=== PATIENT | female | born 1965 | race Caucasian/White ===

== ENCOUNTER 2018-01-14 08:08 | Inpatient (IN) | payer OTHER ==
[2018-01-01 11:11] VITALS: BMI 35.0
--- NOTE | 2018-01-01 11:41 | PAT Medication Instructions ---
Service Date Jan 01, 2018. Current Home Medication List Bupropion (Wellbutrin Sr), 150 MG PO BID Hydrocodone/Acetaminophen 10MG/325MG ([place] 10MG/325MG), 1 TAB PO Q4H PRN for Pain Lorazepam (Ativan), 1 MG PO Q6H PRN for RN Nitrofurantoin Macrocrystals (Macrodantin), 50 MG PO HS Propranolol (Inderal), 80 MG PO HS Tizanidine (Zanaflex), 4 MG PO Q8H PRN for RN Topiramate (Topamax), 100 MG PO BID Medication Instructions For Your Scheduled Surgery - Hold the following medications the morning of surgery: Tizanidine (Zanaflex), 4 MG PO Q8H PRN for RN - Take the following medications the morning of surgery with a sip of water: Bupropion (Wellbutrin Sr), 150 MG PO BID Hydrocodone/Acetaminophen 10MG/325MG ([place] 10MG/325MG), 1 TAB PO Q4H PRN for Pain (okay to take up to 4 hours prior to surgery if needed) Lorazepam (Ativan), 1 MG PO Q6H PRN for RN (if needed) Topiramate (Topamax), 100 MG PO BID - Take the following medications as scheduled the night before surgery: Topiramate (Topamax), 100 MG PO BID Tizanidine (Zanaflex), 4 MG PO Q8H PRN for RN (if needed) Propranolol (Inderal), 80 MG PO HS Nitrofurantoin Macrocrystals (Macrodantin), 50 MG PO HS Lorazepam (Ativan), 1 MG PO Q6H PRN for RN Hydrocodone/Acetaminophen 10MG/325MG ([place] 10MG/325MG), 1 TAB PO Q4H PRN for Pain (if needed) Bupropion (Wellbutrin Sr), 150 MG PO BID If you have any questions please call us at [phone] or [phone] or [phone]
[2018-01-01 12:07] LABS: BASO % 0.4 %; BASO ABS # 0.02 K/uL (0-0.2); EOS % 1.7 %; EOS ABS # 0.09 K/uL (0-0.5); HEMATOCRIT 40.8 % (37-47); HEMOGLOBIN 14.2 g/dL (12.0-16.0); IG# 0.01 K/uL (0.00-0.02); LYMPH % 22.4 %; LYMPH ABS # 1.18 K/uL (1.2-3.4); MEAN CELL VOLUME 91.5 fL (80-100); MEAN CORPUSCULAR HEMOGLOBIN 31.8 pg (25-34); MEAN CORPUSCULAR HGB CONC 34.8 g/dl (32-36); MEAN PLATELET VOLUME 9.1 fL (7.4-10.4); MONO ABS # 0.42 K/uL (0.11-0.59); NEUT % 67.3 %; NEUT ABS # 3.54 K/uL (1.4-6.5); PLATELET COUNT 165 K/uL (130-400); RED CELL DISTRIBUTION WIDTH CV 12.6 % (11.5-14.5); RED CELL DISTRIBUTION WIDTH SD 41.9 fL (36.4-46.3); WHITE BLOOD COUNT 5.26 K/uL (4.8-10.8)
[2018-01-01 12:25] LABS: PTT PATIENT 26.4 SECONDS (21.0-31.0)
--- NOTE | 2018-01-01 12:26 | DIAGNOSTIC IMAGING REPORT ---
CHEST 2 VIEWS ROUTINE HISTORY: Preop. COMPARISON: None. FINDINGS: The lungs are clear. Cardiac silhouette is normal in size. No pleural effusions. No pneumothorax. IMPRESSION: No acute process. Electronically signed by: Gilberto Smith M.D. 01/01/2018 12:24 PM Dictated Date/Time: 01/01/2018 12:23 PM
[2018-01-01 14:30] LABS: CALCIUM 9.1 mg/dl (8.5-10.1); CREATININE 1.03 mg/dl (0.60-1.20); POTASSIUM 3.9 mmol/L (3.5-5.1)
--- NOTE | 2018-01-13 16:08 | HISTORY & PHYSICAL EXAMINATION ---
DATE OF ADMISSION: 01/14/2018 PREOPERATIVE HISTORY AND PHYSICAL CHIEF COMPLAINT: Back and lower extremity difficulty, paresthesias, numbness and tingling. HISTORY OF PRESENT ILLNESS: She has a working diagnosis of a severely degenerative segment of lumbar spine, L5-S1, decreased range of motion and a spondylolisthesis. She has failed conservative care. She cannot continue to function and go on with life the way it is currently going for her. She is desirous of surgical intervention. PAST MEDICAL HISTORY: Mitral valve prolapse, stomach ulcer. PAST SURGICAL HISTORY: Laminectomy, approximately 1 year ago. ALLERGIES: LODINE AND PENICILLIN. MEDICATIONS: Propranolol, hydrocodone, tizanidine and lorazepam. FAMILY HISTORY: Positive family history of heart disease. SOCIAL HISTORY: , works as a nurse. Rarely drinks. No tobacco. REVIEW OF SYSTEMS: Negative fevers, sweats, chills, no bowel and bladder issues. Denies any chest pain, palpitations or arrhythmias. Denies asthma, wheezing, shortness of breath. No nausea, vomiting; no urgency, frequency. Admits to numbness and tingling. No easy bruisability. No immune deficiency. OBJECTIVE: VITAL SIGNS: She is 5 feet 6 inches, 210, blood pressure 120/80, pulse 80. Afebrile. GENERAL: Alert, oriented, converses well, articulates well. Mentation normal. No depression. HEENT: Normal ____ NECK: Supple. RESPIRATORY: No wheezing, rhonchi or rales. CARDIAC: Normal S1, S2, no S3. ABDOMEN: Soft, nontender, bowel sounds present. EXTREMITIES: She has 1/4 Achilles reflexes, 1/4 knee jerk, 5/5 strength. SKIN: Intact. NEUROLOGICAL: She has pain with flexion, extension of the spine. Pain with percussion. IMAGES: Demonstrate stenosis of L5-S1, degenerative changes and disc space collapse at L5-S1. PLAN: Surgery includes a posterior lumbar interbody fusion, L5-S1.
[~2018-01-14] VITALS: Ht 167.6 cm; Wt 98.1 kg
[2018-01-14] VITALS (8 sets, daily range): BP systolic 108–144; BP diastolic 68–86; PULSE 53–86; TEMP 36.2–36.9; O2SAT 96–100; Ht 167.6 cm; Wt 98.1 kg
[~2018-01-14 08:08] MED LIST: ACETAMINOPHEN IV 1000MG/100ML IV SCH; ATV/1 PO; BUPR-79 PO; CLINDAMYCIN 600 MG/54 ML D5W 54 ML IV SCH; CeleBREX 200 MG CAP PO SCH; GABAPENTIN 900 MG PO SCH; HYDR-4079 PO; LACTATED RINGER'S 1000ML 1,000 ML IV SCH; NITR1CAP33 PO; NSS 1000ML IV SCH; PROP80TA2 PO; TIZA4CAP PO; TOPI100T20 PO
[2018-01-14] MEDS ORDERED: MULTTAB58 PO (08:26)
[2018-01-14] MEDS ORDERED: MISCCAP80 PO (08:26)
[2018-01-14] MEDS ORDERED: FENTANYL CITRATE INJ 50 MCG/1 ML 2 ML VIAL ONE (09:23)
[2018-01-14] MEDS ORDERED: MIDAZOLAM HCL 1 MG/ML 2ML VIAL ONE (09:23)
[2018-01-14] MEDS ORDERED: THROMBIN FOR SOLN 20000 UNIT KIT ONE ×2 (10:20→12:15)
[2018-01-14] MEDS ORDERED: GELATIN SPONGE SZ 100 ONE ×2 (10:20→12:15)
[2018-01-14] MEDS ORDERED: BACITRACIN 50000 UNIT VIAL ONE (10:21)
[2018-01-14] MEDS ORDERED: VANCOMYCIN HCL 1000MG/20ML VIAL ONE (10:21)
[2018-01-14] MEDS ORDERED: SCOPOLAMINE 1.5 MG TDSY TD ONE ×2 (10:29→10:30)
--- NOTE | 2018-01-14 10:35 | History & Physical Bridge Note ---
H&P Re-Evaluation Bridge Note: I have examined the patient, reviewed the History & Physical and in the interval since the performance of the History & Physical I have noted the following changes of clinical significance: No changes noted
[2018-01-14] MEDS ORDERED: BUPIVACAINE/EPINEPHRINE 0.5% MPF 1:200,000 30 ML VIAL ONE (10:40)
[2018-01-14] MEDS ORDERED: ONDANSETRON INJ 2 MG/ML 2 ML VIAL IV PRN ×2 (10:45→13:45)
[2018-01-14] MEDS ORDERED: LABETALOL HCL IV 5 MG/ML 20ML IV PRN (10:45)
[2018-01-14] MEDS ORDERED: HYDROmorphone INJ 2 MG/ML SYR/VIAL IV PRN (10:45)
[2018-01-14] MEDS ORDERED: ATROPINE SULFATE 0.1 MG/ML 5ML SYR IV PRN (10:45)
[2018-01-14] MEDS ORDERED: HYDROmorphone INJ 2 MG/ML SYR/VIAL ONE (11:04)
[2018-01-14] MEDS ORDERED: ROCURONIUM BROMIDE 10 MG/ML 5 ML VIAL IV ONE ×2 (11:13→13:09)
[2018-01-14] MEDS ORDERED: PROPOFOL IV EMULSION 10 MG/ML 20 ML VIAL IV ONE (11:13)
[2018-01-14] MEDS ORDERED: RANITIDINE HCL 25 MG/ML INJ ONE (11:13)
[2018-01-14] MEDS ORDERED: ONDANSETRON INJ 2 MG/ML 2 ML VIAL ONE (11:13)
[2018-01-14] MEDS ORDERED: METOCLOPRAMIDE HCL INJ 5 MG/ML 2 ML VIAL ONE (11:13)
[2018-01-14] MEDS ORDERED: DEXAMETHASONE SOD INJ 4 MG/ML VIAL ONE (11:13)
[2018-01-14] MEDS ORDERED: LIDOCAINE HCL 2% 2 ML VIAL (20MG/ML) ONE (11:13)
[2018-01-14] MEDS ORDERED: EpHEDrine SULFATE 50MG/5ML SYR ONE (13:08)
[2018-01-14] MEDS ORDERED: GLYCOPYRROLATE INJ 0.2 MG/ML VIAL ONE (13:08)
[2018-01-14] MEDS ORDERED: NEOSTIGMINE METHYLSULFATE 1 MG/ML 10ML VIAL ONE (13:08)
--- NOTE | 2018-01-14 13:10 | DIAGNOSTIC IMAGING REPORT ---
LUMBAR SPINE 2 OR 3 VIEW CLINICAL HISTORY: 52 years-old Female presenting with L5-S1 POSTERIOR LUMBAR INTERBODY FUSION. TECHNIQUE: 1 fluoroscopic spot image(s) obtained as part of an intraoperative procedure. COMPARISON: 11/30/2017. FINDINGS/IMPRESSION: Bilateral transpedicular screw fixation of L5-S1 with interbody spacer new from prior. Grossly normal anatomic alignment. Please see surgical report for further details. Fluoroscopy dosage (mGy): 26.2. Fluoroscopy time: 21 seconds. Number of fluoroscopic spot images: 1. Electronically signed by: Husam Perla M.D. 01/14/2018 1:09 PM Dictated Date/Time: 01/14/2018 1:08 PM
--- NOTE | 2018-01-14 13:32 | [facility] Post Operative Brief Note ---
Immediate Operative Summary Operative Date Jan 14, 2018. Pre-Operative Diagnosis Lumbosacral Stenosis L5-S1, Degenerative changes and disc space collapse L5-S1. Post-Operative Diagnosis same as pre-operative Procedure(s) Performed L5-S1 Posterior Lumbar Interbody Fusion Surgeon Dr. Damaso Carlisle Business Records Manager Surgeon(s) Kemar Mccullough PA-C Estimated Blood Loss 400mL Findings Consistent with Post-Op Diagnosis Specimens none, Per Surgeon Drains hemovac Anesthesia Type General Complication(s) none Disposition Accompanied Pt To Recover: Disposition: Recovery Room / PACU
[2018-01-14] MEDS ORDERED: SODIUM CHLORIDE 0.9% 1000ML 1,000 ML IV SCH (13:43)
[2018-01-14] MEDS ORDERED: MAGNESIUM HYDROXIDE SUSP 30 ML UDC PO PRN (13:45)
[2018-01-14] MEDS ORDERED: LORAZEPAM 1 MG TAB PO PRN (13:45)
[2018-01-14] MEDS ORDERED: LORAZEPAM INJ 1 MG in SYRINGE 0.5 ML IV PRN (13:45)
[2018-01-14] MEDS ORDERED: METOCLOPRAMIDE HCL INJ 5 MG/ML 2 ML VIAL IV PRN (13:45)
[2018-01-14] MEDS ORDERED: HYDROmorphone HCL 0.5MG/ML 50 ML CASSETTE IV PRN (13:45)
[2018-01-14] MEDS ORDERED: OXYCODONE/ACETAMINOPHEN 5-325 TAB PO PRN (13:45)
[2018-01-14] MEDS ORDERED: ACETAMINOPHEN 325 MG TAB PO PRN (13:45)
[2018-01-14] MEDS ORDERED: TRAMADOL HCL 50 MG TAB PO PRN (13:45)
[2018-01-14] MEDS ORDERED: PROMETHAZINE HCL INJ 12.5 MG in SODIUM CHLORIDE 0.9% 50ML 50 ML IV PRN (13:45)
[2018-01-14] MEDS ORDERED: NALOXONE HCL 0.4 MG/1 ML VIAL/CARP IV PRN (13:45)
[2018-01-14] MEDS ORDERED: HYDROmorphone INJ 1 MG/ML SYR ONE (13:53)
[2018-01-14] MEDS ORDERED: HYDROmorphone HCL 0.5MG/ML 50 ML CASSETTE ONE (13:54)
[2018-01-14] MEDS ORDERED: NURSING VERBAL MED ORDER ONE (14:15)
--- NOTE | 2018-01-14 14:44 | Anesthesiology Progress Note ---
Anesthesia Post Op Note Date & Time Jan 14, 2018 at 14:44 Vital Signs Pain Intensity: 4 Vital Signs Past 12 Hours Date Time Temp Pulse Resp B/P (MAP) Pulse Ox O2 Delivery O2 Flow Rate FiO2 01/14/18 14:30 51 12 137/78 98 Nasal Cannula 2 01/14/18 14:20 53 12 132/78 95 Nasal Cannula 2 01/14/18 14:10 36.2 58 14 144/82 100 Nasal Cannula 4 01/14/18 14:00 55 12 142/87 100 Oxymask 10 01/14/18 13:50 62 16 131/103 100 Oxymask 10 01/14/18 13:42 36.0 71 16 105/60 100 Oxymask 10 01/14/18 08:33 36.9 66 18 144/86 99 Room Air Notes Mental Status: alert / awake / arousable, participated in evaluation Pt Amnestic to Procedure: Yes Nausea / Vomiting: adequately controlled Pain: adequately controlled Airway Patency, RR, SpO2: stable & adequate BP & HR: stable & adequate Hydration State: stable & adequate Anesthetic Complications: no major complications apparent
[2018-01-14 15:18] LABS: HEMATOCRIT 37.7 % (37-47); HEMOGLOBIN 13.3 g/dL (12.0-16.0)
[2018-01-14] MEDS: SODIUM CHLORIDE 0.9% 1000ML 1,000 ML IV SCH (15:49)
[2018-01-14] MEDS: KETOROLAC TROMETHAMINE 30 MG/ML VIAL IV SCH ×2 (15:50→22:00)
--- NOTE | 2018-01-14 16:01 | OPERATIVE REPORT ---
DATE OF OPERATION: 01/14/2018 PREOPERATIVE DIAGNOSES: Spinal stenosis, instability, nerve root compression L5-S1 lumbar spine. POSTOPERATIVE DIAGNOSES: Same. PROCEDURES: Include laminectomy, decompression foraminotomy, partial facetectomy of L5-S1, pedicle screw instrumentation L5-S1, posterior lumbar interbody fusion L5-S1, and posterolateral fusion L5-S1. SURGEON: Damaso Carlisle DO VP OF D[employer] MARKETING: Kemar Mccullough PA-C COMPLICATIONS: Zero. BLOOD LOSS: 400. DESCRIPTION OF PROCEDURE: The patient was taken to the operating room and general intubated anesthetic provided to patient, placed prone, scrubbed with alcohol, prepped with ChloraPrep, and draped sterile. We made a skin incision L5-S1 dissecting soft tissue in the same plane, putting in a deep self-retaining retractor. We were out over the facet joints, sacral ala and the transverse process of L5. We did a decompression laminectomy at this involved level, taking down the lamina of L5 completing foraminotomies. We did discectomies both sides as pleased with the nerve root compression. I was impressed with the nerve root compression and pleased with the neuro decompression. We then safely got pedicle screws into the pedicles of sacrum, L5 on the left and sacrum L5 on the right, and felt the fit was anatomic. We then retracted the dura over in medial direction on both sides, able to get interbody cage from the Pressy, packed with autograft into the involved area, autograft ____ the cage placement. The right hand cage was too deep, we extracted this and pulled it back several millimeters. We irrigated thoroughly, locked down the construct bone grafted our transverse processes, closed fascia to fascia over Hemovac drain with #1 Vicryl, 2-0 in the subcuticular layer, 3-0 nylon on the skin. Sterile dressings applied. The patient returned to PACU stable. No apparent complications. I attest to the content of the Intraoperative Record and any orders documented therein. Any exception s are noted below.
[2018-01-14] MEDS: CLINDAMYCIN IV 600 MG in DEXTROSE 5% 50ML 50 ML IV SCH (19:50)
[2018-01-14] MEDS: DEXAMETHASONE INJ 10 MG in SYRINGE 0 ML IV SCH (19:51)
[2018-01-15] VITALS (7 sets, daily range): BP systolic 98–152; BP diastolic 57–80; PULSE 68–105; TEMP 36.5–36.8; O2SAT 96–100
[2018-01-15] MEDS: CLINDAMYCIN IV 600 MG in DEXTROSE 5% 50ML 50 ML IV SCH (03:04)
[2018-01-15] MEDS: KETOROLAC TROMETHAMINE 30 MG/ML VIAL IV SCH ×4 (04:07→21:44)
[2018-01-15] MEDS: DEXAMETHASONE INJ 10 MG in SYRINGE 0 ML IV SCH ×3 (04:08→19:55)
[2018-01-15] MEDS: SODIUM CHLORIDE 0.9% 1000ML 1,000 ML IV SCH (04:08)
[2018-01-15] MEDS ORDERED: BISACODYL 10 MG SUPP PR PRN (06:00)
[2018-01-15] MEDS ORDERED: BISACODYL 5 MG TABEC PO PRN (06:00)
[2018-01-15] MEDS ORDERED: HYDROmorphone INJ 2 MG/ML SYR/VIAL IV PRN (06:00)
[2018-01-15] MEDS ORDERED: HYDROmorphone INJ 1 MG/ML SYR IV PRN (06:00)
[2018-01-15] MEDS ORDERED: DC PCA ONE (06:00)
[2018-01-15] MEDS ORDERED: NURSING VERBAL MED ORDER ONE (06:30)
[2018-01-15 06:38] LABS: HEMATOCRIT 34.1 % (37-47); MEAN CELL VOLUME 89.7 fL (80-100); MEAN CORPUSCULAR HEMOGLOBIN 31.6 pg (25-34); MEAN CORPUSCULAR HGB CONC 35.2 g/dl (32-36); PLATELET COUNT 143 K/uL (130-400); RED CELL DISTRIBUTION WIDTH CV 12.1 % (11.5-14.5); RED CELL DISTRIBUTION WIDTH SD 39.2 fL (36.4-46.3); WHITE BLOOD COUNT 9.43 K/uL (4.8-10.8)
[2018-01-15 07:18] LABS: CALCIUM 8.6 mg/dl (8.5-10.1); CREATININE 0.92 mg/dl (0.60-1.20); POTASSIUM 3.8 mmol/L (3.5-5.1)
--- NOTE | 2018-01-15 07:56 | Anesthesiology Progress Note ---
Anesthesia Post Op Note Date & Time Jan 15, 2018 at 07:55 Vital Signs Pain Intensity: 5.0 Vital Signs Past 12 Hours Date Time Temp Pulse Resp B/P (MAP) Pulse Ox O2 Delivery O2 Flow Rate FiO2 01/15/18 07:47 36.7 68 18 112/70 (84) 96 Room Air 01/15/18 07:30 Room Air 01/15/18 03:15 36.5 100 16 109/73 (85) 98 Room Air 01/14/18 23:45 Room Air 01/14/18 22:55 36.6 86 16 119/79 (92) 97 Room Air Notes Mental Status: alert / awake / arousable, participated in evaluation Pt Amnestic to Procedure: Yes Nausea / Vomiting: adequately controlled Pain: adequately controlled, improving with treatment Airway Patency, RR, SpO2: stable & adequate BP & HR: stable & adequate Hydration State: stable & adequate Anesthetic Complications: no major complications apparent pt reported difficulty waking up until about midnight. Patient wide awake now. Being medicated for pain during breakfast.
[2018-01-15] MEDS: POLYETHYLENE (MIRALAX) 17 GM PACK PO SCH (08:42)
[2018-01-15] MEDS ORDERED: HYDR-5688 PO (12:49)
--- NOTE | 2018-01-15 12:51 | Discharge Instructions ---
Discharge Instructions Date of Service Jan 15, 2018. Admission Reason for Admission: Spinal Stenosis, Intervertebral Disc Disorder W/My Discharge Discharge Diagnosis / Problem: SAME Discharge Goals Goal(s): Improve function Activity Recommendations Activity Limitations: as noted below Lifting Limitations: no more than 5 pounds, gradually increase as tolerated . Instructions / Follow-Up Instructions / Follow-Up MEDICATIONS: Please take your prescriptions as instructed at your pre-op appointment. SPECIAL CARE: The following information is intended to answer some of the common questions and concerns regarding your surgery. Each patient is an individual and receives individual counselling throughout the course of treatment, from diagnosis to surgery all the way through recovery. What follows is not an exhaustive list, but should be a useful guide to some of the common questions and concerns patients have regarding their surgeries. These are not provided to keep you from calling us; rather, they give you something accurate and concrete to reference as you recover from your procedure. If you need us, we are available to you. As always, if you are not sure about something, call us at [phone]. MEDICAL EMERGENCIES: For these conditions, call 911 or go to your local hospital-based Emergency Department - not [facility] or equivalent. * Paralysis * Severe chest pain or difficulty breathing * Swelling or redness of either leg Spine procedures can be rather complex and though complications are rare, they do occur. In such cases, effective advice regarding emergency situations cannot always be addressed over the telephone. You may be referred to the emergency department for more effective management of your problem. Activity Limitations: It is important to give your body time to heal, so please limit your activities : * In general, don't do anything that moves your spine too much. You should avoid contact sports, twisting or heavy lifting while you recover. * 5-10 pounds is all you should attempt to lift. * You should not plan on driving for approximately 3 weeks and you should avoid traveling more than 30-45 minutes at a time. Longer trips should be broken down with walking breaks spaced appropriately. * Physical therapy is not usually required. * Walking and good posture practices will help you recover and regain your function. * Avoid straining or sudden changes in position. * In general, the goal is to take it easy and recover. Don't cause any new problems. Just relax. Showers: * Do not take a bath, use a Jacuzzi or hot tub or otherwise submerge your incision. * It is usually safe to take a shower 4-5 days after your surgery. * Your incision does not require any special creams or ointments. * Simply clean it with soap and water, dry and re-dress with a clean bandage afterwards. Incision: * Keep incision clean, dry and protected until your first follow-up appointment. * Some amount of drainage and redness is normal. Any drainage should be fairly clear and not have a foul odor. * If you feel anything is wrong or you have excessive drainage, please call us. * Your stitches and kateryna will be removed 10-14 days after your surgery. At the time of your first post-op visit. * Neck surgeries are typically closed with a suture underneath the skin. The steri-strips over the incision should be maintained until we see you in the office. Bracing: * You may be provided with a back or neck brace to encourage good posture and prevent injury. It will remind you not to do too much as you heal and will alert others to the fact that you have had a surgery. * Back braces may be removed for showers and when you are resting at home. They must be worn when you are walking around for any period of time or for travel. * For neck surgery, you will likely be provided with two cervical collars. The soft collar (Fenwick or foam rubber) is worn most commonly throughout the day and while sleeping. The plastic collar (provided at the hospital) is for showering/bathing. * Except while eating, collars should remain in place. More specifically, bracing is provided for a purpose and should be worn. * Please obtain your brace or collars prior to your operation and bring them to the hospital with you on the day of surgery. * You should also bring your collars to your post-op appointment with Dr. Carlisle. You should always take good care of your body and practice healthy habits, especially following surgery. You should: * Follow your doctor's treatment plan * Sit and stand properly with good posture (ears over shoulders, shoulders over hips) Don't slouch * Learn to lift correctly * Exercise regularly (low-impact aerobic exercise is especially good, but check with your doctor first) * Generally, be up and walking for 5-10 minutes at a time at least 3-4 times per day from the day you get home * Increasing walking to tolerance until you can walk for 20-30 minutes at a time * Attain and maintain a healthy body weight * Eat healthy foods ( a well-balanced, low-fat diet rich in fruits and vegetables) and get enough calcium * Avoid excessive use of alcohol When to call our office - If you notice any of the following: * Increased pain not relieve by pain medicine * Fevers greater then 100 degrees F, chills or flu symptoms * Increased redness around incision * Drainage from the incision that is not clear * Any foul smelling drainage * Swelling or fluid collection beneath the skin Miscellaneous: * In the hospital, you may be given a walker or cane for support while walking. These are temporary needs and are intended to prevent injuries due to falls. You may discontinue them when you feel strong and steady enough on your feet. * Sleep in a comfortable position. We find that many patients find a lounge chair or recliner with several pillows to be beneficial in the early post-operative period. * The support stockings should be used for 7-10 days and may be discontinued when you are back to walking more and conducting usual household activities. No problem is insignificant. We are here to help you and get you well. Contact us at [phone]. Definitions: Foraminotomy: If part of the disc or a bone spur (osteophyte) is pressing on a nerve as it leaves the vertebra (through an exit called the foramen), a foraminotomy may be done. Otomy means "to make an opening." A foraminotomy is making the opening of the foramen larger, so the nerve can exit without being compressed. Laminotomy: Similar to the foraminotomy, a laminotomy makes a larger opening, this time in your bony plate protecting your spinal canal and spinal cord (the lamina). The lamina may be pressing on your nerve, so the surgeon may make more room for the nerves using a laminotomy. Laminectomy: Sometimes, a laminotomy is not sufficient. The surgeon may need to remove all or part of the lamina. This procedure is called a laminectomy. This can often be done at many levels without any harmful effects. Current Hospital Diet Patient's current hospital diet: Regular Diet Discharge Diet Recommended Diet: Regular Diet Procedures Procedures Performed: L5-S1 Posterior Lumbar Interbody Fusion Pending Studies Studies pending at discharge: no Medical Emergencies . Who to Call and When: Medical Emergencies: If at any time you feel your situation is an emergency, please call 911 immediately. . Non-Emergent Contact Non-Emergency issues call your: Primary Care Provider . "Provider Documentation" section prepared by Damaso Carlisle. . VTE Core Measure Inpt VTE Proph given/why not?: Treatment not indicated
--- NOTE | 2018-01-15 13:05 | ORTHOPEDICS PROGRESS NOTE ---
DATE: 01/15/2018 SUBJECTIVE: She is alert, oriented, no shortness of breath, chest pain. She did have difficulty voiding. She did have insertion of a Garrett catheter. She is alert and oriented. Vital signs stable. Laboratory work appropriate. Afebrile. ASSESSMENT: Status post lumbar spine reconstructive surgery, a posterior lumbar interbody fusion, L5-S1, doing well in the short run. DISPOSITION: Includes instructions, precautions, education to the patient. Will get her up and ambulatory. We are having a urology consultation. Hopefully, get her home within 24-48 hours.
[2018-01-15] MEDS ORDERED: LORAZEPAM 1 MG TAB PO PRN (13:15)
[2018-01-15] MEDS: OXYCODONE/ACETAMINOPHEN 5-325 TAB PO PRN ×3 (15:15→23:51)
--- NOTE | 2018-01-15 16:49 | Urology Consultation ---
History General Date of Service: Jan 15, 2018. Chief Complaint: urinary retention Primary Care Physician: Fabricio Ashford D.O. Pt seen a urologist before?: Yes If yes, why?: stress urinary incontinence History of Present Illness I am asked by Dr Ashford to evaluate and treat patient for urinary retention. She is admitted for spine surgery. She had surgery yesterday and has not been able to void since. This also happened after her spine surgery last year. It resolved in 1 day then. She has normal sensation of bladder fullness so far post op but could not pass but 25 mL of urine once. Her urinary history is notable for prior urethral sling surgery done in 2004 by an unknown surgeon in [place]. She is unsure if mesh was used. She also has a history of frequent utis for which she takes a daily antibiotic. She is getting up and moving with minimal assistance so far post-op. Laboratory Results Past 24 Hours Test 01/15/18 06:05 Range/Units White Blood Count 9.43 4.8-10.8 K/uL Red Blood Count 3.80 4.2-5.4 M/uL Hemoglobin 12.0 12.0-16.0 g/dL Hematocrit 34.1 37-47 % Mean Corpuscular Volume 89.7 80-100 fL Mean Corpuscular Hemoglobin 31.6 25-34 pg Mean Corpuscular Hemoglobin Concent 35.2 32-36 g/dl RDW Standard Deviation 39.2 36.4-46.3 fL RDW Coefficient of Variation 12.1 11.5-14.5 % Platelet Count 143 130-400 K/uL Mean Platelet Volume 9.0 7.4-10.4 fL Sodium Level 137 136-145 mmol/L Potassium Level 3.8 3.5-5.1 mmol/L Chloride Level 107 98-107 mmol/L Carbon Dioxide Level 21 21-32 mmol/L Anion Gap 9.0 3-11 mmol/L Blood Urea Nitrogen 15 7-18 mg/dl Creatinine 0.92 0.60-1.20 mg/dl Est Creatinine Clear Calc Drug Dose 82.5 ml/min Estimated GFR () 81.8 Estimated GFR (Non- 70.6 BUN/Creatinine Ratio 16.5 10-20 Random Glucose 124 70-99 mg/dl Calcium Level 8.6 8.5-10.1 mg/dl Hepatitis C Antibody Screen NEG NEG Labs were reviewed and are within normal limits unless listed below. Labs are available in the chart and at [facility] Past History chronic back pain, GERD, other (obesity ) Past Surgical History: spinal surgery, tonsillectomy, tubal ligation, other ( sling surgery) Family History mother of complications of MS, father young in MVA, sister had hysterectomy, brother healthy Social History Hx Tobacco Use In Past Year?: No Smoking: non-smoker Alcohol: socially Drug use: none Marital status: Housing status: lives with family Occupation status: employed (nurse) Allergies Coded Allergies: Gabapentin (Verified Allergy, Intermediate, forgetfulness, 01/14/18) Iodine (Verified Allergy, Unknown, BLISTERS WHEN LEFT ON A WHILE, 01/14/18) Penicillins (Verified Allergy, Unknown, UNKNOWN, 01/15/18) as a baby, mother told her she had a reaction , details unknown Medications Home Medications: Home Meds and Scripts Medications Dose Route/Sig Max Daily Dose Days Date Category Dose Instructions [place] 5MG/325MG (Acetaminophen/Hydrocodone Bitart) Tab 1-2 Tabs PO Q6H PRN 01/15/18 Rx As needed for pain. Probiotic (Probiotic Product) 1 Cap Cap 1 Cap PO DAILY 01/14/18 Reported Multivitamin (Multiple Vitamin) 1 Tab Tab 1 Tab PO DAILY 01/14/18 Reported Ativan (Lorazepam) 1 Mg Tab 1 Mg PO Q6H PRN 01/01/18 Reported Zanaflex (Tizanidine HCl) 4 Mg Cap 4 Mg PO Q8H PRN 01/01/18 Reported [place] 10MG/325MG (Acetaminophen/Hydrocodone Bitart) Tab 1 Tab PO Q4H PRN 01/01/18 Reported PRN PAIN Macrodantin (Nitrofurantoin Macrocrystals) 50 Mg Cap 50 Mg PO HS 01/01/18 Reported Inderal (Propranolol HCl) 80 Mg Tab 80 Mg PO HS 01/01/18 Reported Topamax (Topiramate) 100 Mg Tab 100 Mg PO BID 01/01/18 Reported Wellbutrin Sr (Bupropion HCl) 150 Mg Ertab 150 Mg PO BID 01/01/18 Reported Inpatient Medications: Current Inpatient Medications Medications (Trade) Dose Ordered Sig/[place] Route Start Time Stop Time Status Last Admin Dose Admin Miscellaneous (Remove Transderm-Scop Patch) 1 ea Q48H N/A 01/16/18 10:30 01/16/18 10:31 Diphenhydramine HCl (Benadryl Cap) 25 mg Q6H PRN PO 01/14/18 13:45 02/13/18 13:44 01/14/18 18:15 25 MG Magnesium Hydroxide (Milk Of Magnesia Susp) 30 ml DAILY PRN PO 01/14/18 13:45 02/13/18 13:44 Bisacodyl (Dulcolax Supp) 10 mg DAILY PRN SD 01/15/18 06:00 02/14/18 05:59 Bisacodyl (Dulcolax Tab) 5 mg DAILY PRN PO 01/15/18 06:00 02/14/18 05:59 Polyethylene (Miralax Powder Packet) 17 gm DAILY PO 01/15/18 09:00 02/14/18 08:59 01/15/18 08:42 17 GM Lorazepam 1 mg/ Syringe 1 ml @ 1 mls/min Q6H PRN IV 01/14/18 13:45 02/13/18 13:44 Lorazepam (Ativan Tab) 1 mg Q6H PRN PO 01/14/18 13:45 02/13/18 13:44 Metoclopramide HCl (Reglan Inj) 10 mg Q6H PRN IV 01/14/18 13:45 02/13/18 13:44 Ondansetron HCl (Zofran Inj) 4 mg Q6H PRN IV 01/14/18 13:45 02/13/18 13:44 Promethazine HCl 12.5 mg/Sodium Chloride 50.5 ml @ 202 mls/hr Q6H PRN IV 01/14/18 13:45 02/13/18 13:44 Ketorolac Tromethamine (Toradol Inj) 30 mg Q6H IV 01/14/18 16:00 01/19/18 15:59 01/15/18 15:51 30 MG Hydromorphone HCl (Dilaudid Inj) 1.5 mg Q3H PRN IV 01/15/18 06:00 01/29/18 05:59 Oxycodone/ Acetaminophen (Percocet 5-325mg Tab) 2 tab Q4H PRN PO 01/14/18 13:45 01/28/18 13:44 Future hold 01/15/18 08:43 2 TAB Hydromorphone HCl (Dilaudid Inj) 1 mg Q3H PRN IV 01/15/18 06:00 01/29/18 05:59 Oxycodone/ Acetaminophen (Percocet 5-325mg Tab) 1 tab Q4H PRN PO 01/14/18 13:45 01/28/18 13:44 Future hold 01/15/18 15:15 1 TAB Tramadol HCl (Ultram Tab) 50 mg Q4H PRN PO 01/14/18 13:45 02/13/18 13:44 Acetaminophen (Tylenol Tab) 650 mg Q6H PRN PO 01/14/18 13:45 02/13/18 13:44 Dexamethasone Sodium Phosphate 10 mg/Syringe 2.5 ml @ 1 mls/min Q8H IV 01/14/18 20:00 01/16/18 04:03 01/15/18 11:47 1 MLS/MIN Bupropion HCl (Wellbutrin-Sr Tab) 150 mg BID PO 01/15/18 21:00 02/14/18 20:59 Lorazepam (Ativan Tab) 1 mg Q6H PRN PO 01/15/18 13:15 02/14/18 13:14 Multivitamins (Multivitamin Tab) 1 tab DAILY PO 01/16/18 09:00 02/15/18 08:59 Propranolol HCl (Inderal LA Cap) 80 mg HS PO 01/15/18 21:00 02/14/18 20:59 Topiramate (Topamax Tab) 100 mg BID PO 01/15/18 21:00 02/14/18 20:59 Miscellaneous Information (Order Awaiting Action) 1 ea QS N/A 01/15/18 16:00 02/14/18 15:59 Tizanidine HCl (Zanaflex Tab) 4 mg Q8H PRN PO 01/15/18 13:30 02/14/18 13:29 Review of Systems Review of Systems Constitutional: No chills Neurological: + numbness/tingling (5th digits both feet), No dizzy Endocrine: No excessive thirst, No too hot, No too cold Gastrointestinal: No indigestion, No constipation Cardiovascular: No chest pain, No swelling ankles/feet Respiratory: No shortness of breath, No chronic cough Ears / Nose / Throat: No hearing loss Female : + urinary retention, + infections, No blood in urine, No leaking urine, No kidney stones, No vaginal discharge Physical Exam Vital Signs: Vital Signs Past 12 Hours Date Time Temp Pulse Resp B/P (MAP) Pulse Ox O2 Delivery O2 Flow Rate FiO2 01/15/18 15:16 36.7 79 18 127/71 (89) 97 Room Air 01/15/18 15:10 Room Air 01/15/18 10:45 36.8 82 19 98/63 (75) 99 Room Air 01/15/18 09:46 105 100 01/15/18 07:47 36.7 68 18 112/70 (84) 96 Room Air 01/15/18 07:30 Room Air Physical Exam: General Appearance: WD/WN, no apparent distress, + obese Eyes: bilateral eyes normal inspection ENT: hearing grossly normal Neck: supple, no adenopathy, no JVD, trachea midline Respiratory/Chest: no respiratory distress Gastrointestinal: Abdomen: normal abdomen Bladder: normal bladder Renal: normal renal Hernia: absent hernia Liver: normal liver Genitourinary - Female: Urethral Meatus: normal urethral meatus ([address] with yellow urine in bag) Extremities: non-tender, normal inspection, no pedal edema, no calf tenderness Neurologic/Psychiatric: alert, normal mood/affect, oriented x 3 Skin: normal color, warm/dry, no rash Lymphatic: no adenopathy Assessment & Plan Assessment & Plan Post op urinary retention sensation seems normal moving better today suggest void trial tomorrow am. If cant void well by noon replace a 14 fr castro and send home we will repeat void trial on sunday at [facility]. I do not recommend daily suppressive antibiotics but we may give a single dose at time of catheter cessation. Some women after sling surgery carry elevated residual urines.
[2018-01-15] MEDS: TOPIRAMATE 100 MG TAB PO SCH (20:33)
[2018-01-15] MEDS: BuPROPion SR 150 MG TABCR PO SCH (20:33)
[2018-01-15] MEDS ORDERED: PROPRANOLOL HCL 80 MG LA CAP PO SCH (21:00)
[2018-01-16] MEDS: DEXAMETHASONE INJ 10 MG in SYRINGE 0 ML IV SCH (03:56)
[2018-01-16] MEDS: KETOROLAC TROMETHAMINE 30 MG/ML VIAL IV SCH ×2 (03:56→09:50)
[2018-01-16 06:11] LABS: HEMATOCRIT 33.8 % (37-47); HEMOGLOBIN 11.8 g/dL (12.0-16.0); MEAN CELL VOLUME 89.9 fL (80-100); MEAN CORPUSCULAR HEMOGLOBIN 31.4 pg (25-34); MEAN CORPUSCULAR HGB CONC 34.9 g/dl (32-36); MEAN PLATELET VOLUME 9.1 fL (7.4-10.4); PLATELET COUNT 164 K/uL (130-400); RED CELL DISTRIBUTION WIDTH CV 12.4 % (11.5-14.5); WHITE BLOOD COUNT 14.62 K/uL (4.8-10.8)
[2018-01-16 06:50] LABS: CREATININE 1.1 mg/dl (0.60-1.20); POTASSIUM 3.8 mmol/L (3.5-5.1)
[2018-01-16 06:52] VITALS: BP 131/83; PULSE 63; TEMP 36.5; O2SAT 100
[2018-01-16] MEDS: TOPIRAMATE 100 MG TAB PO SCH (07:24)
[2018-01-16] MEDS: BuPROPion SR 150 MG TABCR PO SCH (07:24)
[2018-01-16] MEDS: POLYETHYLENE (MIRALAX) 17 GM PACK PO SCH (07:25)
[2018-01-16 07:56] VITALS: O2SAT 99
[2018-01-16 08:10] VITALS: BP 131/83; PULSE 63; TEMP 36.5; O2SAT 99
[2018-01-16] MEDS ORDERED: MULTIVITAMIN TAB PO SCH (09:00)
--- NOTE | 2018-01-16 09:04 | DISCHARGE SUMMARY ---
She is alert, oriented. Pain seems controlled. Vital signs stable. No major complaints. No shortness of breath, chest pain, confusion. Wound protected. ASSESSMENT: Reconstructive spine surgery. DISPOSITION: Home, rest, medication provided. Instructions, precautions provided. Followup will be done in 10 days. She is to call if problems.
--- NOTE | 2018-01-16 09:23 | Progress Note ---
Subjective Date of Service: Jan 16, 2018. Subjective Pt evaluation today including: conversation w/ patient Voiding: no voiding problems I found patient in good spirits dressed in street clothes walking the halls comfortably and at a good pace. She had her castro our at 7am and at 8am she voided 100mL. The void felt normal and easy. She does not feel full now. Review of Systems Constitutional: No fever, No weakness Respiratory: No cough Cardiac: No chest pain Female : No dysuria, No urinary frequency, No hematuria, No incontinence Objective Vital Signs Date Time Temp Pulse Resp B/P (MAP) Pulse Ox O2 Delivery O2 Flow Rate FiO2 01/16/18 08:10 36.5 63 16 99 Room Air 01/16/18 07:56 99 Room Air 01/16/18 07:15 Room Air 01/16/18 06:52 36.5 63 16 131/83 (99) 100 Room Air 01/15/18 23:45 Room Air 01/15/18 23:11 36.7 71 16 103/63 (76) 96 Room Air 01/15/18 20:33 79 104/57 (73) 01/15/18 15:16 36.7 79 18 127/71 (89) 97 Room Air 01/15/18 15:10 Room Air 01/15/18 10:45 36.8 82 19 98/63 (75) 99 Room Air 01/15/18 09:46 105 100 Physical Exam General Appearance: WD/WN, no apparent distress ENT: hearing grossly normal Respiratory/Chest: no respiratory distress Neurologic/Psychiatric: alert, normal mood/affect, oriented x 3 Laboratory Results Last 24 Hours Test 01/16/18 05:50 White Blood Count 14.62 K/uL Red Blood Count 3.76 M/uL Hemoglobin 11.8 g/dL Hematocrit 33.8 % Mean Corpuscular Volume 89.9 fL Mean Corpuscular Hemoglobin 31.4 pg Mean Corpuscular Hemoglobin Concent 34.9 g/dl RDW Standard Deviation 40.0 fL RDW Coefficient of Variation 12.4 % Platelet Count 164 K/uL Mean Platelet Volume 9.1 fL Sodium Level 138 mmol/L Potassium Level 3.8 mmol/L Chloride Level 109 mmol/L Carbon Dioxide Level 23 mmol/L Anion Gap 6.0 mmol/L Blood Urea Nitrogen 19 mg/dl Creatinine 1.10 mg/dl Est Creatinine Clear Calc Drug Dose 69.0 ml/min Estimated GFR () 65.9 Estimated GFR (Non- 56.9 BUN/Creatinine Ratio 17.4 Random Glucose 125 mg/dl Calcium Level 9.0 mg/dl Assessment and Plan post-op urinary retention ambulating well now voided once already after her next void we will do a bladder scan. If over 150mL call me. watch for cystitis over next few days. see me prn
== END 2018-01-16 11:09 | disposition home or self-care (01) | DRG 455 ==
LOC: C.ACU 08:08 → C.3E 10:00 → ENRESERV 14:05
PROVIDERS: ADMIT Orthopaedic Surgery Orthopaedic Surgery of the Spine; ATTEND Orthopaedic Surgery Orthopaedic Surgery of the Spine
DX: M48.07 Spinal stenosis, lumbosacral region (principal); I34.1 Nonrheumatic mitral (valve) prolapse; K21.9 Gastro-esophageal reflux disease without esophagitis; G89.29 Other chronic pain; E66.9 Obesity, unspecified; R33.9 Retention of urine, unspecified; Z68.34 Body mass index [BMI] 34.0-34.9, adult; Z88.0 Allergy status to penicillin; Z82.49 Family history of ischemic heart disease and other diseases of the circulatory system